=== PATIENT | female | born 1995 | race Hispanic/Latino ===

== ENCOUNTER 2023-10-08 00:26 | Emergency (ER) | payer BC, SELFPAY ==
[2023-10-08 00:27] VITALS: BMI 35.4
[2023-10-08 00:33] VITALS: BP 123/81
--- NOTE | 2023-10-08 01:01 | ED.GENMED ---
History of Present Illness
General
Chief Complaint: Back Pain
Source: patient
Time Seen by Provider: 10/08/23 00:51
Travel History
Have you had any contact with someone who has COVID-19?: No
Do you have any symptoms of coronavirus? Fever > 100 degrees, chills, cough, shortness of breath, sore throat, loss of taste or smell, muscle aches, or headache?: No
History of Present Illness
History of Present Illness:
28-year-old female presents to the emergency room complaining of low back pain. Patient states the pain has been present for the past couple days. Is worse with some movement. She cannot recall any particular activity that elicited the pain. She
believes she actually woke up with it. She denies any fever, chills, cough, shortness of breath, urinary frequency or urgency. She denies any dysuria. Last menstrual period was about 3 days ago. She has not taken anything for the pain such as
Tylenol or Motrin.
Phy Exam
Physical Exam
Physical Exam:
General: Awake, Alert, Oriented X3. No acute distress.
Vitals: unremarkable
Head: Atraumatic
Eyes: Pupils equal, EOMI
Throat: Airway intact, no exudates
Neck: Trachea midline
Lungs: Clear and equal b/l
Heart: Regular rate, no murmurs
Abd: Soft, Nontender, No pulsatile mass
Back: Positive discomfort palpation bilateral paraspinal musculature.
Neuro: Cranial nerves intact, muscle strength equal bilaterally
Skin: Warm, dry, no rash
Extremities: pulses equal b/l, no edema
Course
Orders/Labs/Results
Orders:
Orders
10/08/23 01:00
Ketorolac [Toradol] 30 mg IM NOW STA
Test Result ONCE
10/08/23 01:08
, Urine Qualitative Screen [HCG, Urine Qualitative Screen] Urgent
Date Specimen was Collected: 10/08/23
Time Specimen was Collected: :
Urinalysis Reflex To Culture Urgent
Date Specimen was Collected: 10/08/23
Time Specimen was Collected: :
Urine Microscopic Reflex Cult Urgent
Urine Culture Urgent
ROSHAN Source: U
Specimen Description:
Date Specimen was Collected: 10/08/23
Time Specimen was Collected: :
Abnormal Lab Results
10/08/23
01:08
Urine Ketones 1+ A
(Negative)
Leukocyte Esterase Rfl 1+ A
(Negative)
Urine Bacteria (Reflex) Few A
(Negative)
Vital Signs
Initial and Last Documented VS:
Initial Vital Signs
Temp Pulse Resp BP Pulse Ox
97.9 F 110 20 123/81 98
10/08/23 00:33 10/08/23 00:33 10/08/23 00:33 10/08/23 00:33 10/08/23 00:33
Last Documented Vital Signs
Temp Pulse Resp BP Pulse Ox
97.9 F 110 20 113/57 99
10/08/23 00:33 10/08/23 00:33 10/08/23 00:33 10/08/23 02:00 10/08/23 02:30
MDM/Problems Addressed
Differential Diagnosis Includes:
Lumbar strain, urinary tract infection, kidney stone
MDM/Problems Addressed:
Patient's low back pain seems most consistent with muscular lumbar pain. Urinalysis is negative for blood, leukocyte Estrace or nitrates. Will treat symptomatically with NSAIDs and Skelaxin.
*Pulse Oximetry
Patient hypoxic: no
*Critical Care Note
Total Time (30-74mins, 75-104mins- exclusive of procedures): Not Applicable
ED Attending Note
-
Portions of this chart may have been created with voice recognition software.� Occasional wrong word or��sound alike� substitutions may have occurred due to the inherent limitations of voice recognition software.
Discharge Plan
Departure
Patient Disposition: Home (Routine Discharge)
Date of Disposition: 10/08/23
Time of Disposition: 02:18
Patient with high blood pressure during this ER visit?: No
Condition: Good
Discharge Problem:
Lumbar strain
Instructions: Low Back Pain (DC)
Prescriptions:
New
metaxalone 800 mg tablet
800 mg PO TID PRN (Reason: muscle pain) Qty: 20 0RF
ibuprofen 600 mg tablet
600 mg PO Q6H PRN (Reason: Pain) Qty: 20 0RF
Referrals:
Demian Lino DO [Family Provider] -
Interventions
Interventions:
*Risk Screen - Suicide Last Done: 10/08/23 00:33
*General Assessment Last Done: 10/08/23 00:33
*Neglect/Abuse Screening Last Done: 10/08/23 00:33
ED- Fall Risk Assessment Last Done: 10/08/23 01:43
*ED COVID-19 Vaccine History Last Done: 10/08/23 02:37
*Nursing Disposition Last Done: 10/08/23 02:44
ED-Musculoskeletal Assessment Last Done: 10/08/23 00:56
Discharge Date and Time
Discharge Date/Time: 10/08/23 02:44
Print Language: [id number]
[2023-10-08] MEDS: TORADOL 30 MG IM (01:11)
[2023-10-08 01:17] VITALS: BP 106/79
[2023-10-08 01:18] LABS: Urine Albumin Negative (Neg - Trace); Urine Bilirubin Negative (Negative); Urine Character Clear (Clear); Urine Color Yellow; Urine Glucose Negative (Negative); Urine Ketone 1+ (Negative); Urine Leukocyte 1+ (Negative); Urine Nitrite Negative (Negative); Urine Occult Blood Negative (Negative); Urine Urobilinogen 1+ (Neg - 1+)
[2023-10-08 01:27] LABS: HCG, Urine Qualitative Screen Negative
[2023-10-08 01:28] LABS: Urine Squamous Cell 26-30 /LPF (Few)
[2023-10-08 01:29] LABS: Urine Bacteria Few (Negative); Urine Red Blood Cell None Seen /HPF (0-2)
[2023-10-08 02:00] VITALS: BP 113/57
== END 2023-10-08 02:44 | disposition home or self-care (01) ==
LOC: EMR 00:26
PROVIDERS: EMERGENCY PHYSICIAN Emergency Medicine; FAMILY PHYSICIAN Internal Medicine
DX: S39.012A Strain of muscle, fascia and tendon of lower back, initial encounter (principal); X58.XXXA Exposure to other specified factors, initial encounter
CPT/HCPCS: 99284; 96372; 81003; 81015; 81025; 87086